=== PATIENT | male | born 1985 | race Caucasian/White ===

== ENCOUNTER 2017-12-15 09:02 | Emergency (ER) | payer OTHER ==
[~2017-12-15] VITALS: Ht 182.9 cm; Wt 90.7 kg
[2017-12-15] MEDS ORDERED: CEPH-264 PO (09:30)
[2017-12-15] MEDS ORDERED: IBUP800T19 PO (09:35)
--- NOTE | 2017-12-15 13:43 | ED.ADGEN ---
Past History Past Medical History: No Pertinent History Past Surgical History: No Surgical History Alcohol Use: None Drug Use: None Adult General HPI HPI Patient is a 32 year old male who presents with dog bite. Patient [place] [employer] [place] was approached by another person with a dog. He went to greet the dog when the dog bit him on the thigh. Patient came to the ER today complaining of some pain and he noted some bleeding still from the bite earlier today. His tetanus shot is up-to-date. He is [employer]. Review of Systems Review of Systems Constitutional: Denies fever or chills [] Eyes: Denies change in visual acuity, redness, or eye pain [] HENT: Denies nasal congestion or sore throat [] Respiratory: Denies cough or shortness of breath [] Cardiovascular: No additional information not addressed in HPI [] GI: Denies abdominal pain, nausea, vomiting, bloody stools or diarrhea [] : Denies dysuria or hematuria [] Musculoskeletal: Denies back pain or joint pain [] Integument: Denies rash or skin lesions [] Neurologic: Denies headache, focal weakness or sensory changes [] Endocrine: Denies polyuria or polydipsia [] All other systems were reviewed and found to be within normal limits, except as documented in this note. Physical Exam Physical Exam Constitutional: Well developed, well nourished, no acute distress, non-toxic appearance HENT: oropharynx moist Eyes: EOMI Neck: Normal range of motion Skin: Warm, dry, no erythema Extremities: puncture wound over the anterior distal thigh on the right. There is local ecchymosis and swelling. wound is draining sero-sanguinous fluid but no active bleeding. no overt signs of infection are present Neurologic: Alert and oriented X 3, normal motor function Psychologic: Affect normal EKG EKG [] Radiology/Procedures Radiology/Procedures [] Course & Med Decision Making Course & Med Decision Making Pertinent Labs and Imaging studies reviewed. (See chart for details) Andree is seen and examined in the ER. He does not have a wound that is amenable to repair. Patient is concerned about antibiotics and him. Therapies for fear of infection. [place] By [employer] regulation, the dog must be up- to-date on immunizations including rabies to be allowed on post. If all regulations are followed, this dog would be immunized against rabies. That said the dog belongs to a person that the patient does not know. He will not be able to verify that the dog is up-to-date on shots. I did review the [facility] rabies cases. In [facility], there was one reported case of animal rabies in 2018 so far. In 2017, there were no reported cases of animal rabies. It seems very unlikely that this patient would've contracted rabies from a dog bite, particularly [place] assuming regulations are followed. As such, no immune globulin is given. The patient is advised to watch for any signs of infection. He is placed on Keflex empirically and discharged to home. He is advised to come back to the ER for any new or concerning symptoms or signs of infection. Final Impression Final Impression Dog bite of right thigh Dragon Disclaimer Dragon Disclaimer This electronic medical record was generated, in whole or in part, using a voice recognition dictation system. PRANEETH CRUZ DO Dec 15, 2017 13:43
== END 2017-12-15 09:42 | disposition home or self-care (01) ==
LOC: ER 09:02
DX: S71.151A Open bite, right thigh, initial encounter (principal); W54.0XXA Bitten by dog, initial encounter; Y93.01 Activity, walking, marching and hiking; Y99.8 Other external cause status; Y92.89 Other specified places as the place of occurrence of the external cause
CPT/HCPCS: 99283